=== PATIENT | male | born 1950 | race Caucasian/White ===

== ENCOUNTER → 2017-06-07 | Outpatient (CLI) | payer MEDICARE, OTHER ==
[2016-05-12 15:47] VITALS: BP 179/88
[~2017-06-07] MED LIST: ATOR40TA PO; BLOOD PRESSURE MED; CLOP75TA57 PO; TRAZ50TA15 PO; VALS40TA2 PO; ZOLP5TAB PO
--- NOTE | 2017-06-07 16:23 | RAD ---
Carotid ultrasound, 06/07/2017: History: Atherosclerotic disease, follow-up carotid plaquing Duplex evaluation of the carotid arteries in the neck was performed including grayscale, color-flow and spectral Doppler analysis. There is mild atherosclerotic plaquing at the carotid bifurcations, right greater than left. The peak systolic velocity in the right internal carotid artery is 69 cm/s with an end-diastolic velocity of 26 cm/s. The peak systolic velocity in left internal carotid artery is 77 cm/s with an end-diastolic velocity of 29 cm/s. The Doppler findings suggest luminal narrowing in the 0-50% diameter range. Antegrade flow is present in both vertebral arteries in the neck. IMPRESSION: Mild atherosclerotic plaquing at both carotid bifurcations with underlying luminal narrowing in the 0-50% diameter range bilaterally. Note: Stenosis calculations for CTA, MRA and conventional angiography are based upon determination of the distal ICA diameter in accordance with the NASCET methodology. Stenosis calculations for Doppler studies are derived from validated velocity criteria which are known to correlate with NASCET methodology of determining stenosis.
== END | disposition home or self-care (01) ==
LOC: US 13:44
PROVIDERS: ATTEND Internal Medicine Cardiovascular Disease
DX: I65.23 Occlusion and stenosis of bilateral carotid arteries (principal); F17.200 Nicotine dependence, unspecified, uncomplicated
CPT/HCPCS: 93880

== ENCOUNTER 2018-01-22 16:02 | Inpatient (IN) | payer MEDICARE, OTHER ==
[~2018-01-22] VITALS: Ht 157.5 cm; Wt 71.3 kg
[~2018-01-22 16:02] MED LIST changes: +TRAZ-85 PO; -TRAZ50TA15 PO
[2018-01-22] MEDS ORDERED: ASPIRIN 81 MG TAB.CHEW PO ONE (16:15)
--- NOTE | 2018-01-22 16:38 | PHYS DOC ---
Past History Past Medical History: CAD, High Cholesterol, Heart Disease, Hypertension, TIA Past Surgical History: Coronary Bypass Surgery Smoking: Non-smoker Alcohol Use: Heavy Drug Use: None Adult General Chief Complaint Chief Complaint: CHEST PAIN HPI HPI Patient is a 67 year old male who presents with complaining of intermittent episodes of chest pain. Patient stated he had 1 episodes of bilateral chest and substernal his pain 4 days ago without radiation, shortness of breath, nausea and vomiting, palpitation or dizziness that last about 30 minutes and resolved with taking nitroglycerin 1. Patient states had another episode today while straining at the bathroom and resolved after 2 minutes. Patient states that the same pain previously with his stent placement. Patient denies fever and chills, cough and congestion, vomiting and diarrhea, urinary symptoms. Patient states he drinks 2 shots of liquor daily and didn't have any today. Review of Systems Review of Systems Constitutional: Denies fever or chills [] Eyes: Denies change in visual acuity, redness, or eye pain [] HENT: Denies nasal congestion or sore throat [] Respiratory: Denies cough or shortness of breath [] Cardiovascular: No additional information not addressed in HPI [] GI: Denies abdominal pain, nausea, vomiting, bloody stools or diarrhea [] : Denies dysuria or hematuria [] Musculoskeletal: Denies back pain or joint pain [] Integument: Denies rash or skin lesions [] Neurologic: Denies headache, focal weakness or sensory changes [] Endocrine: Denies polyuria or polydipsia [] All other systems were reviewed and found to be within normal limits, except as documented in this note. Current Medications Current Medications Current Medications Medications (Trade) Dose Ordered Sig/Frances Start Time Stop Time Status Last Admin Dose Admin Aspirin (Children'S Aspirin) 324 mg 1X ONCE 01/22/18 16:15 01/22/18 16:16 DC 01/22/18 16:22 324 MG Allergies Allergies Allergies Coded Allergies Type Severity Reaction Last Updated Verified rosuvastatin Allergy Intermediate 05/12/16 Yes Physical Exam Physical Exam Constitutional: Well developed, well nourished, no acute distress, non-toxic appearance. [] HENT: Normocephalic, atraumatic, oropharynx moist, no oral exudates, nose normal. [] Eyes: PERRLA, EOMI, conjunctiva normal, no discharge. [] Neck: Normal range of motion, no tenderness, supple, no stridor. [] Cardiovascular:Heart rate regular rhythm, no murmur [] Lungs & Thorax: Bilateral breath sounds clear to auscultation [] Abdomen: Bowel sounds normal, soft, no tenderness, no masses, no pulsatile masses. [] Skin: Warm, dry, no erythema, no rash. [] Back: No tenderness, no CVA tenderness. [] Extremities: No tenderness, no cyanosis, no clubbing, ROM intact, no edema. [] Neurologic: Alert and oriented X 3, normal motor function, normal sensory function, no focal deficits noted. [] Psychologic: Affect normal, judgement normal, mood normal. [] Current Patient Data Vital Signs Vital Signs Date Time Temp Pulse Resp B/P (MAP) Pulse Ox O2 Delivery O2 Flow Rate FiO2 01/22/18 16:07 97 Room Air 01/22/18 16:07 91 20 EKG EKG EKG interpreted by me. EKG at 1607 showed sinus bradycardia at rate of 59, no acute distress and T-wave abnormalities Radiology/Procedures Radiology/[place] [address] IMAGING REPORT Signed PATIENT: ASCENCION BELTRAN ACCOUNT: [id number] : 1950 LOCATION: ER AGE: 67 SEX: M EXAM STATUS: REG ER ORD. PHYSICIAN: LAUREL AMOR MD REASON: chest pain PROCEDURE: PORTABLE CHEST 1V AP portable chest 01/22/2018. Reason for exam: Chest pain for one day. Comparison is made with a study of 05/12/2016. Changes of median sternotomy are again shown. No new infiltrate or effusion is seen. Heart size is normal. IMPRESSION: No acute disease. Electronically signed by: Lucia Calrson Jr., MD (01/22/2018 4:34 PM) [facility] DICTATED AND SIGNED BY: LUCIA CARLSON Jr, MD DATE: 01/22/18 [id number] CC: YANA LANDA MD; LAUREL AMOR MD ~ Course & Med Decision Making Course & Med Decision Making Pertinent Labs and Imaging studies reviewed. (See chart for details) Evaluation of patient in ER showed 67-year-old male patient with history of hypertension, dyslipidemia, coronary artery disease, family history of coronary artery disease complaining of intermittent episodes of chest pain for the last 4 days. Patient did not have any chest pain in ER. Physical exam, EKG, chest x- ray and labs was unremarkable. Because of multiple cardiac risk factor plan to admit patient for evaluation. Dr. Koch on-call hospitalist accepted admission at 1644. Dragon Disclaimer Dragon Disclaimer This electronic medical record was generated, in whole or in part, using a voice recognition dictation system. Departure Departure: Impression: Primary Impression: Acute chest pain Disposition: ADMITTED INPATIENT (@1645) Admitting Physician: Eliana Koch (@[id number]) Condition: IMPROVED Referrals: YANA LANDA MD (PCP) LAUREL AMOR MD Jan 22, 2018 16:38
[2018-01-22 17:10] LABS: BASO % 1 % (0-3); EOS # 0.2 x10^3/uL (0.0-0.7); EOS % 2 % (0-3); HEMATOCRIT 47.5 % (39.0-53.0); HEMOGLOBIN 16.3 g/dL (13.0-17.5); LYMPH # 2.9 x10^3/uL (1.0-4.8); LYMPH % 40 % (24-48); MEAN CORPUSCULAR HEMOGLOBIN 33 pg (25-35); MEAN CORPUSCULAR HGB CONC 34 g/dL (31-37); MEAN CORPUSCULAR VOLUME 96 fL (79-100); MONO # 0.8 x10^3/uL (0.0-1.1); MONO % 11 % (0-9); NEUT # 3.4 x10^3uL (1.8-7.7); NEUT % 47 % (31-73); PLATELET COUNT 250 x10^3/uL (140-400); RED BLOOD COUNT 4.97 x10^6/uL (4.30-5.70); RED CELL DISTRIBUTION WIDTH 13.4 % (11.5-14.5); WHITE BLOOD COUNT 7.3 x10^3/uL (4.0-11.0)
[2018-01-22 17:29] LABS: ALBUMIN 3.6 g/dL (3.4-5.0); ALBUMIN/GLOBULIN RATIO 1.2 (1.0-1.7); CALCIUM 8.9 mg/dL (8.5-10.1); CREATININE 1.1 mg/dL (0.7-1.3); GFR 66.6; POTASSIUM 3.6 mmol/L (3.5-5.1); TOTAL BILIRUBIN 0.9 mg/dL (0.2-1.0); TOTAL PROTEIN 6.6 g/dL (6.4-8.2)
[2018-01-22] MEDS ORDERED: ISOS30TA4 PO (18:46)
[2018-01-22] MEDS ORDERED: SILD50TA PO (18:46)
[2018-01-22 19:00] VITALS: BP 169/82
--- NOTE | 2018-01-22 19:18 | EKG ---
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
[2018-01-22] MEDS ORDERED: ZOLPIDEM 5 MG TABLET. PO PRN (20:30)
[2018-01-22] MEDS ORDERED: traZODone 50 MG TABLET. PO SCH (21:00)
[2018-01-22] MEDS ORDERED: Influenza vaccine per PROTOCOL. MC PRN (23:15)
[2018-01-22 23:31] VITALS: BP 103/62
[2018-01-23 05:00] VITALS: BP 143/80
[2018-01-23 08:16] VITALS: BP 143/80
[2018-01-23] MEDS ORDERED: ISOSORBIDE MONONITRATE ER 30 MG TAB.ER.24H PO SCH (09:00)
[2018-01-23] MEDS ORDERED: NON FORMULARY ITEM (Sildenafil Citrate (Viagra) 1 TAB) PO SCH (09:00)
[2018-01-23] MEDS ORDERED: LOSARTAN 50 MG TABLET. PO SCH (09:00)
--- NOTE | 2018-01-23 09:34 | PDOC2 ---
CONSULT Date of Admission DATE: 01/23/18 TIME: 09:33 Reason for Consult: Chest pain Referring Physician: Dr. Salas Chief Complaint Chest pain Source: Chart review, Patient Problem List Problems Medical Problems: (1) Acute chest pain Status: Acute History of Present Illness 67-year-old male with history of coronary artery disease s/p coronary artery bypass surgery 15 years ago with percutaneous intervention thereafter in [address] Burnett from [facility] presented complaining of retrosternal chest pressure 7/10 severity associated with mild diaphoresis without any associated dyspnea, palpitations or syncope. He had a similar episode last Wednesday that was relieved with sublingual nitroglycerin. Patient stated that he had cardiac catheterization end of last year (2016) for similar symptoms and was told he did not need any intervention (records not available at this time). He is presently chest pain-free. He also stated that he exercises and swims on a regular basis and did not notice any chest pain on exertion. Past Medical History Coronary artery disease s/p CABG with PCI thereafter Hypertension Hyperlipidemia TIA Past Surgical History Coronary artery bypass surgery Family History not contributory due to known history of CAD Social History Patient quit smoking cigarettes and marijuana several years ago and admitted to 2-3 alcoholic drinks intake per day. Current Medications Current Medications Aspirin (Children'S Aspirin) 324 mg 1X ONCE PO Last administered on 01/22/18at 16:22; Start 01/22/18 at 16:15; Stop 01/22/18 at 16:16; Status DC Zolpidem Tartrate (Ambien) 5 mg PRN QHS PRN PO INSOMNIA Last administered on at 20:47; Start 01/22/18 at 20:30 Trazodone HCl (Desyrel) 50 mg QHS PO Last administered on 01/22/18at 20:47; Start 01/22/18 at 21:00 Info (FLU VACCINE per PROTOCOL) 1 ea PRN 1X PRN MC PER PROTOCOL; Start at 23:15; Status UNV Influenza Virus Vaccine (Afluria Trivalent [id number] Syringe) 0.5 ml ONCE ONCE VAX IM ; Start 01/23/18 at 09:00; Stop 01/23/18 at 09:01; Status DC Clopidogrel Bisulfate (Plavix) 75 mg QHS PO ; Start 9/23/18 at 21:00 Isosorbide Mononitrate (Imdur) 30 mg DAILY PO Last administered on 01/23/18at 09 :11; Start 01/23/18 at 09:00 Atorvastatin Calcium (Lipitor) 80 mg QHS PO ; Start 01/23/18 at 21:00 Non-Formulary Medication (Sildenafil Citrate (Viagra)) 1 tab PRN PO ; Start at 09:00; Stop 01/23/18 at 09:00; Status DC Losartan Potassium (Cozaar) 50 mg DAILY PO Last administered on 01/23/18at 09:12 ; Start 01/23/18 at 09:00 Active Scripts Active Reported Isosorbide Mononitrate Er (Isosorbide Mononitrate) 30 Mg Tab.er.24h 1 Tab PO DAILY Viagra (Sildenafil Citrate) 50 Mg Tablet 1 Tab PO PRN Lipitor (Atorvastatin Calcium) 40 Mg Tablet 40 Mg PO BID Diovan (Valsartan) 40 Mg Tablet 80 Mg PO DAILY Ambien (Zolpidem Tartrate) 5 Mg Tablet 5 Mg PO PRN QHS PRN Trazodone Hcl 50 Mg Tablet 50 Mg PO QHS Plavix (Clopidogrel Bisulfate) 75 Mg Tablet 1 Tab PO QHS Allergies: Coded Allergies: rosuvastatin (Verified Allergy, Intermediate, 05/12/16) PSYCHOLOGICAL ROS: No: Hallucinations Eyes: No: Loss of vision HEENT: No: Epistaxis Respiratory: No: Hemoptysis, Shortness of breath Cardiovascular: yes: Chest Pain Gastrointestinal: No: Vomiting, Diarrhea Genitourinary: No: [place] Neurological: No: Seizures Skin: No: Rash General: Alert, Oriented X3 HEENT: Atraumatic, PERRLA Lungs: Clear to auscultation Heart: Regular rate Abdomen: Soft Extremities: No edema Psych/Mental Status: Mood NL VITALS Vital Signs Date Time Temp Pulse Resp B/P (MAP) Pulse Ox O2 Delivery O2 Flow Rate FiO2 01/23/18 09:12 62 143/80 01/23/18 08:16 97.9 95 01/23/18 05:00 18 Room Air Labs Laboratory Tests Test 01/22/18 16:16 01/22/18 16:21 01/22/18 19:45 01/22/18 22:30 Troponin I Quantitative < 0.017 ng/mL (0-0.055) < 0.017 ng/mL (0-0.055) < 0.017 ng/mL (0-0.055) White Blood Count 7.3 x10^3/uL (4.0-11.0) Red Blood Count 4.97 x10^6/uL (4.30-5.70) Hemoglobin 16.3 g/dL (13.0-17.5) Hematocrit 47.5 % (39.0-53.0) Mean Corpuscular Volume 96 fL (79-100) Mean Corpuscular Hemoglobin 33 pg (25-35) Mean Corpuscular Hemoglobin Concent 34 g/dL (31-37) Red Cell Distribution Width 13.4 % (11.5-14.5) Platelet Count 250 x10^3/uL (140-400) Neutrophils (%) (Auto) 47 % (31-73) Lymphocytes (%) (Auto) 40 % (24-48) Monocytes (%) (Auto) 11 % (0-9) Eosinophils (%) (Auto) 2 % (0-3) Basophils (%) (Auto) 1 % (0-3) Neutrophils # (Auto) 3.4 x10^3uL (1.8-7.7) Lymphocytes # (Auto) 2.9 x10^3/uL (1.0-4.8) Monocytes # (Auto) 0.8 x10^3/uL (0.0-1.1) Eosinophils # (Auto) 0.2 x10^3/uL (0.0-0.7) Basophils # (Auto) 0.0 x10^3/uL (0.0-0.2) Prothrombin Time 9.8 SEC (9.4-11.4) Prothromb Time International Ratio 1.0 (0.9-1.1) Sodium Level 139 mmol/L (136-145) Potassium Level 3.6 mmol/L (3.5-5.1) Chloride Level 104 mmol/L (98-107) Carbon Dioxide Level 30 mmol/L (21-32) Anion Gap 5 (6-14) Blood Urea Nitrogen 19 mg/dL (8-26) Creatinine 1.1 mg/dL (0.7-1.3) Estimated GFR (Cockcroft-Gault) 66.6 BUN/Creatinine Ratio 17 (6-20) Glucose Level 84 mg/dL (70-99) Calcium Level 8.9 mg/dL (8.5-10.1) Total Bilirubin 0.9 mg/dL (0.2-1.0) Aspartate Amino Transf (AST/SGOT) 23 U/L (15-37) Alanine Aminotransferase (ALT/SGPT) 50 U/L (16-63) Alkaline Phosphatase 72 U/L (46-116) Creatine Kinase 172 U/L (39-308) FA-Lic-Z-Type Natriuretic Peptide 230 pg/mL (0-124) Total Protein 6.6 g/dL (6.4-8.2) Albumin 3.6 g/dL (3.4-5.0) Albumin/Globulin Ratio 1.2 (1.0-1.7) Lipase 290 U/L (73-393) Ethyl Alcohol Level < 10 mg/dL (0-10) Assessment/Plan 1. Coronary artery disease s/p CABG 15 years ago with PCI thereafter in 2006 presenting with chest pain with mixed features. Myocardial infarction has been ruled out. Recent cardiac catheterization apparently did not show any lesions needing intervention. 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 2. Hypertension: Controlled 3. Hyperlipidemia: Continue statin therapy Thank you for your consultation GEORGE LANDEROS MD Jan 23, 2018 09:34
[2018-01-23] MEDS ORDERED: CLOPIDOGREL BISULFATE 75 MG TABLET PO SCH (11:00)
[2018-01-23] MEDS ORDERED: ATORVASTATIN CALCIUM 20 MG TABLET PO SCH (11:00)
[2018-01-23 11:12] VITALS: BP 130/81
--- NOTE | 2018-01-24 01:08 | SSS ---
ADMIT DATE: 01/23/2018 HISTORY OF PRESENT ILLNESS: The patient is a 67-year-old male patient, who came to the Emergency Room, complaining of chest pain. His first episode of chest pain started last Wednesday, the pain lasted about 10-15 minutes. He rated about 8/10 in severity associated with some sweating, but no nausea, no vomiting, no shortness of breath and no radiation and it happened when he was sitting watching TV yesterday and had another episode that lasted about 5 minutes, again pain was retrosternal, is not associated with any nausea or vomiting, occurred when he was at rest and was relieved by sublingual nitroglycerin. He came to the Emergency Room, was evaluated and his first set of cardiac enzyme was normal less than 0.017. He was admitted and has to do 2 more sets of cardiac enzyme and consult the Cardiology team. His EKG showed that he was in sinus bradycardia at the rate of [address] segment elevation or depression. PAST MEDICAL HISTORY: Significant for coronary artery disease, status post CABG 15 years ago. He has also PCI with stent deployment in 2006. His last stress was about 6-7 months ago and was normal. He is known to have hypertension, hyperlipidemia, left carotid artery stenosis and transient ischemic attack. PAST SURGICAL HISTORY: Significant for coronary artery bypass graft surgery, percutaneous coronary intervention with stent deployment x 2, and carotid endarterectomy in 1997. He has rectal prolapse repair 2-[address] Adhikari at [facility]. He has prostate biopsy and followed by his urologist. He underwent esophagogastroduodenoscopy and colonoscopy x 3. ALLERGIES: HE IS ALLERGIC TO CRESTOR. MEDICATIONS: He is currently on following medications: He is on Plavix 75 mg once a day, atorvastatin calcium 40 mg twice a day, isosorbide mononitrate 30 mg once a day, sildenafil citrate 50 mg as needed, valsartan 80 mg daily, trazodone 50 mg at bedtime and Ambien 5 mg at bedtime as needed for insomnia. FAMILY HISTORY: He has one brother, who is older and has a quadruple bypass surgery. One younger brother, who is 61 years old has massive stroke. His father at the age of 88 because of colon cancer and mother in her 70s because of massive myocardial infarction. SOCIAL HISTORY: He is , has son and a daughter. He is an ex-smoker, quit in 1974. He drinks 2-3 drinks a day every night, does not use any drugs. 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 REVIEW OF SYSTEMS: The patient denied any blurring of vision, cataract, glaucoma or macular degeneration. Denied any earache, tinnitus, or sensorineural deafness. Denied any nosebleeds, stuffy nose, or postnasal drip. Denied any sore throat, sore tongue, toothache, hoarseness of voice or difficulty swallowing. Denied any nausea, vomiting, diarrhea or constipation. Denied any hematemesis, melena or hematochezia. Denied any dysuria, frequency or hematuria. He did complain of chest pain, but no shortness of breath. No orthopnea or paroxysmal nocturnal dyspnea. Denied any cough, phlegm or hemoptysis. Denied any chills, rigors, or fever. Denied any dizziness, lightheadedness, or vertigo. PHYSICAL EXAMINATION: GENERAL: When I saw him, he was resting slightly propped up in bed, in no apparent respiratory distress. No pallor, jaundice, cyanosis, or thyromegaly. No jugular venous distension. No lower limb edema. VITAL SIGNS: His heart rate was 68, blood pressure was 130/81, temperature was 98, respiratory rate was 18 and oxygen saturation was 94%. HEAD, EYES, EARS, NOSE AND THROAT: Showed normocephalic, atraumatic. NECK: Supple. HEART: Showed normal first and second heart sounds with no gallop, rub or murmur. CHEST: Clear to auscultation. No crepitation or rhonchi. ABDOMEN: Distended, soft, nontender. No guarding or rigidity. No organomegaly. Hernial orifice intact. Bowel sounds normal. NEUROLOGIC: He was awake, alert, responding appropriately. Cranial nerves intact. EXTREMITIES: He moves extremities without difficulty. LABORATORY DATA: His white cell count was 7300, hemoglobin 16, hematocrit 48, MCV 96, and platelet count of 250,000. His prothrombin time was 9.8, INR of 1. His chemistry showed a serum sodium of 139, potassium 3.6, chloride 104, bicarbonate 30, anion gap of 5, BUN 19, creatinine 1.1, estimated GFR was 66 mL per minute. His glucose was 84, calcium was 8.9. AST, ALT, and alkaline phosphatase were normal. His total protein was 6.6, albumin was 3.6. His lipase was 190. His toxicology screen was negative for alcohol. He has 3 sets of cardiac enzymes, which were negative and showed troponin to be less than 0.017. ASSESSMENT AND PLAN: The patient has had a chest x-ray, which showed that the patient has median sternotomy with no infiltrate or effusion. The heart size is normal. He was seen by the garment steamer and basically the plan was for him to be discharged home as there is no evidence of any myocardial infarction and that he should follow with Dr. Burnett and his group as an outpatient. He was discharged home to continue on following medication, atorvastatin 80 mg at bedtime, Plavix 75 mg once a day, losartan 50 mg once a day, isosorbide mononitrate 30 mg once a day, trazodone 50 mg at bedtime and Ambien 5 mg as needed for insomnia. FINAL DISCHARGE DIAGNOSES: Chest pain, myocardial infarction, ruled out coronary artery disease, status post stent deployment, coronary artery bypass graft surgery, hypertension, hyperlipidemia, transient ischemic attack, left carotid artery stenosis, status post carotid endarterectomy. HALINA RODRIGUEZ MD DR: SIVA/leslie JOB#: [id number] / [id number]
== END 2018-01-23 15:31 | disposition home or self-care (01) | DRG 392 ==
LOC: ER 16:02 → 1 SOUTH 17:10
PROVIDERS: ADMIT Internal Medicine; ATTEND Internal Medicine
DX: K21.9 Gastro-esophageal reflux disease without esophagitis (principal); E78.00 Pure hypercholesterolemia, unspecified; E78.5 Hyperlipidemia, unspecified; I11.9 Hypertensive heart disease without heart failure; R00.1 Bradycardia, unspecified; I25.10 Atherosclerotic heart disease of native coronary artery without angina pectoris; Z80.0 Family history of malignant neoplasm of digestive organs; Z82.3 Family history of stroke; Z82.49 Family history of ischemic heart disease and other diseases of the circulatory system; Z86.73 Personal history of transient ischemic attack (TIA), and cerebral infarction without residual deficits; Z87.891 Personal history of nicotine dependence; Z95.1 Presence of aortocoronary bypass graft; Z79.899 Other long term (current) drug therapy; Z88.8 Allergy status to other drugs, medicaments and biological substances; Z79.02 Long term (current) use of antithrombotics/antiplatelets; Z95.5 Presence of coronary angioplasty implant and graft
CPT/HCPCS: 36415; 71045; 80053; 82550; 83690; 83880; 84484; 85025; 85610; 90471; 90756; 93005; G0480; 99285-25; Q2035

== ENCOUNTER 2018-05-17 07:43 | Emergency (ER) | payer MEDICARE, OTHER ==
[~2018-05-17] VITALS: Ht 157.5 cm; Wt 68.0 kg
[~2018-05-17 07:43] MED LIST changes: +ISOS30TA4 PO; +SILD50TA PO
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
[2018-05-17 08:48] VITALS: BP 139/80
== END 2018-05-17 08:35 | disposition home or self-care (01) ==
LOC: ER 07:43
DX: S01.112A Laceration without foreign body of left eyelid and periocular area, initial encounter (principal); I25.810 Atherosclerosis of coronary artery bypass graft(s) without angina pectoris; I11.9 Hypertensive heart disease without heart failure; E78.00 Pure hypercholesterolemia, unspecified; F10.20 Alcohol dependence, uncomplicated; Z86.73 Personal history of transient ischemic attack (TIA), and cerebral infarction without residual deficits; Z88.8 Allergy status to other drugs, medicaments and biological substances; Y90.9 Presence of alcohol in blood, level not specified; W06.XXXA Fall from bed, initial encounter; Y93.84 Activity, sleeping; Y92.89 Other specified places as the place of occurrence of the external cause; Y99.8 Other external cause status
CPT/HCPCS: 12011; 99283

== ENCOUNTER 2018-12-22 07:55 | Emergency (ER) | payer MEDICARE, OTHER ==
[~2018-12-22] VITALS: Ht 309.9 cm; Wt 70.0 kg
[~2018-12-22 07:55] MED LIST changes: +TRAZ-120 PO; -TRAZ-85 PO
--- NOTE | 2018-12-22 08:13 | PHYS DOC ---
Past History Past Medical History: CAD, High Cholesterol, Heart Disease, Hypertension, TIA Past Surgical History: Coronary Bypass Surgery Smoking: Non-smoker Alcohol Use: Heavy Drug Use: None Adult General HPI HPI Patient is a 68-year-old male presents with difficulty speaking and difficulty getting his watch on this morning. Patient was last seen normal by his as they went to bed at 10:00 last night. noticed symptoms at 7:30 this morning. There has been no nausea or vomiting. No chest pain. No previous history of anything like this.[] Review of Systems Review of Systems Constitutional: Denies fever or chills [] Eyes: Denies change in visual acuity, redness, or eye pain [] HENT: Denies nasal congestion or sore throat [] Respiratory: Denies cough or shortness of breath [] Cardiovascular: No chest pain or palpitations[] GI: Denies abdominal pain, nausea, vomiting, bloody stools or diarrhea [] : Denies dysuria or hematuria [] Musculoskeletal: Denies back pain or joint pain [] Integument: Denies rash or skin lesions [] Neurologic: See history of present illness[] Endocrine: Denies polyuria or polydipsia [] All other systems were reviewed and found to be within normal limits, except as documented in this note. Allergies Allergies Allergies Coded Allergies Type Severity Reaction Last Updated Verified rosuvastatin Allergy Intermediate 05/12/16 Yes Physical Exam Physical Exam Constitutional: Well developed, well nourished, no acute distress, non-toxic appearance. [] HENT: Normocephalic, atraumatic, bilateral external ears normal, oropharynx moist, no oral exudates, nose normal. [] Eyes: PERRLA, EOMI, conjunctiva normal, no discharge. [] Neck: Normal range of motion, no tenderness, supple, no stridor. [] Cardiovascular:Heart rate regular rhythm, no murmur [] Lungs & Thorax: Bilateral breath sounds clear to auscultation [] Abdomen: Bowel sounds normal, soft, no tenderness, no masses, no pulsatile masses. [] Skin: Warm, dry, no erythema, no rash. [] Back: No tenderness, no CVA tenderness. [] Extremities: No tenderness, no cyanosis, no clubbing, ROM intact, no edema. [] Neurologic: Alert and oriented X 3, see NIH stroke scale[] Psychologic: Affect normal, judgement normal, mood normal. [] EKG EKG EKG shows a sinus rhythm at 64 bpm, normal axis, QTC of 423 ms, no ST elevation. Interpreted by me at 0809[] Radiology/Procedures Radiology/Procedures PROCEDURE: CT CODE STROKE HEAD WO CT CODE STROKE HEAD WO History: Difficulty speaking starting at 07:30 today Comparison: None. Technique: Noncontrast CT imaging was performed of the head. Exposure: One or more of the following individualized dose reduction techniques were utilized for this examination: 1. Automated exposure control 2. Adjustment of the mA and/or kV according to patient size 3. Use of iterative reconstruction technique. Findings: No acute extra-axial or parenchymal hemorrhage is identified. There is no significant intra-axial mass effect, midline shift, or extra-axial fluid collection. The woodward-white differentiation of the major vascular territories is preserved. There is a small old lacunar infarct right caudate head. There are some small foci of likely old lacunar infarcts of the left cerebellum, also probable small focus left temporal parietal lobe. The ventricles, sulci, and cisterns are within normal limits in size and configuration. The mastoid air cells and the visualized paranasal sinuses are aerated. No acute calvarial abnormality is identified. There is atherosclerotic calcification of the bilateral carotid siphons, also right intradural vertebral artery. Impression: 1. There is no evidence of acute intracranial hemorrhage. There are old lacunar infarcts of the right caudate head and left cerebellum, also probable small focus of the left temporal parietal lobe. CT ANGIOGRAPHY HEAD AND NECK History: Code stroke. Difficulty speaking. Technique: After bolus of intravenous contrast, volumetric CT data acquisition was acquired of the head and neck. Multiplanar reconstruction images to include MIP and 3-D reconstruction images are submitted. Exposure: One or more of the following individualized dose reduction techniques were utilized for this examination: 1. Automated exposure control 2. Adjustment of the mA and/or kV according to patient size 3. Use of iterative reconstruction technique. Contrast: 90 mL Omnipaque 350 IV contrast. Comparison: None Any determination of stenosis is based on NASCET criteria. Head CTA: ICA: Bilateral carotid siphon atheromatous calcifications with mild multifocal narrowing. No high-grade stenosis or occlusion. MCA: Occlusion of left distal M2 branch (series 7 image #248 was present. Irregularity of right superior MCA branches likely due to atheromatous disease. Patent right MCA branches. OTIS: No stenosis, occlusion or aneurysm. Patent anterior communicating artery. GRAIN INSPECTOR: No stenosis, occlusion or aneurysm. Patent bilateral posterior communicating arteries. Basilar artery: No stenosis, occlusion or aneurysm. Distal vertebral arteries: Distal left vertebral artery functionally ends in PICA. Right distal vertebral artery atheromatous calcination with mild to moderate narrowing. CT angiogram neck: Aortic arch: Mild atheromatous consolidations within the aortic arch and branch vessels. Common carotid arteries: No stenosis, occlusion or dissection. Bilateral distal common carotid artery and right carotid bulb atheromatous calcifications. Internal carotid arteries: Right proximal internal carotid artery atheromatous calcified plaque. No significant stenosis. No occlusion. Postoperative changes within the left carotid bulb region. External carotid arteries: Patent Vertebral arteries: Abdominal right vertebral artery within the neck. Imaged lung apices are unremarkable. Soft tissues appear normal. Bones: No pathologic osseous lesions. Multilevel cervical spondylosis most prominent C5-C6 and C6-C7. See prior noncontrast head CT report for evaluation of brain parenchyma. Impression: 1. Acute left M2 mid to distal branch occlusion. Additional intracranial atheromatous disease with mild narrowings, as described. 2. Atheromatous disease within the neck without significant stenosis or occlusion. PROCEDURE: PORTABLE CHEST 1V EXAM: Chest, single view. HISTORY: Altered mental status COMPARISON: None. FINDINGS: A frontal view of the chest obtained. There is no infiltrate, pleural effusion or pneumothorax. The heart is normal in size. There is evidence of median sternotomy. There are surgical clips within the left neck. IMPRESSION: No acute pulmonary finding.[] Course & Med Decision Making Course & Med Decision Making Pertinent Labs and Imaging studies reviewed. (See chart for details) ED course and medical decision making: Patient arrived, was kept in the wheelchair for the quick evaluation and sent to CT due to concern for stroke. Patient returned and was placed in bed and tolerated rest of exam well. After the return of the CT head findings, consultation was made with neurology, Dr. Canas, who agrees that while it seems the patient is having a stroke, trauma lytics are contraindicated because we do not have a firm time of onset within the past 4.5 hours. She agrees with obtaining a CT angiogram of the head to see if there is large vessel occlusion but does not believe that this will be present. 0 920, patient doing better, he is able to follow commands as far as finger to nose and crosses midline with this. He is speaking much clearer. He reports he was up shaving between 7 and 7:30 this morning and then he noticed that patches of the shaving cream or missing. At approximately the same time called by radiology notes a clot in the left M2 branch distally. Dr. Canas was contacted who recommended giving TPA. Discussed risks and benefits of administering TPA and had informed consent signed by patient. Both patient and had no questions. Critical care time of 63 minutes for direct patient care, consultation with specialists, interpretation of lab and imaging studies, and administration of TPA. [] Dragon Disclaimer Dragon Disclaimer This electronic medical record was generated, in whole or in part, using a voice recognition dictation system. Departure Departure: Impression: Primary Impression: Stroke Disposition: 05 TRANSFER OTHER Condition: IMPROVED Referrals: YANA LANDA MD (PCP) NIHSS - ED NIH Stroke Scale: NIH Stroke Scale Response (Comments) Value Level of Consciousness: 0 Alert/Responsive 0 LOC Questions: 1 Answers one correctly 1 LOC Commands: 0 Performs both tasks 0 Best Gaze: 0 Normal 0 Visual: 0 No visual loss 0 Facial Palsy: 1 Minor paralysis 1 Motor - Left Arm 0 No drift 0 Motor - Right Arm 0 No drift 0 Motor - Left Leg 0 No drift 0 Motor: Right Leg 0 No drift 0 Limb Ataxia: 0 Absent (does not follow commands to be able to perform) 0 Sensory: 1 Mid to moderate loss (bilateral upper extremities) 1 Best Language: 1 Mild to mod aphasia 1 Dysathria: 1 Mild to moderate 1 Extinction and Inattention: 0 Normal 0 Total 5 Problem Qualifiers Primary Impression: Stroke CVA mechanism: embolism Precerebral and cerebral artery: other cerebral artery Qualified Codes: I63.49 - Cerebral infarction due to embolism of other cerebral artery ALEX KNIGHT DO Dec 22, 2018 08:13
--- NOTE | 2018-12-22 08:22 | EKG ---
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
[2018-12-22 08:23] LABS: BASO # 0.1 x10^3/uL (0.0-0.2); BASO % 1 % (0-3); EOS # 0.2 x10^3/uL (0.0-0.7); EOS % 2 % (0-3); HEMATOCRIT 49.8 % (39.0-53.0); HEMOGLOBIN 16.9 g/dL (13.0-17.5); LYMPH # 3.7 x10^3/uL (1.0-4.8); LYMPH % 52 % (24-48); MEAN CORPUSCULAR HEMOGLOBIN 33 pg (25-35); MEAN CORPUSCULAR HGB CONC 34 g/dL (31-37); MEAN CORPUSCULAR VOLUME 97 fL (79-100); MONO # 0.5 x10^3/uL (0.0-1.1); MONO % 7 % (0-9); NEUT # 2.7 x10^3uL (1.8-7.7); NEUT % 38 % (31-73); PLATELET COUNT 278 x10^3/uL (140-400); RED BLOOD COUNT 5.14 x10^6/uL (4.30-5.70); RED CELL DISTRIBUTION WIDTH 13.5 % (11.5-14.5); WHITE BLOOD COUNT 7.1 x10^3/uL (4.0-11.0)
[2018-12-22] MEDS ORDERED: IOHEXOL 350 MG/ML 100 ML VIAL. IV ONE (08:30)
[2018-12-22 08:46] LABS: ALBUMIN 3.7 g/dL (3.4-5.0); ALBUMIN/GLOBULIN RATIO 1.1 (1.0-1.7); CALCIUM 8.9 mg/dL (8.5-10.1); CREATININE 1.1 mg/dL (0.7-1.3); GFR 66.4; MAGNESIUM 2.1 mg/dL (1.8-2.4); POTASSIUM 3.7 mmol/L (3.5-5.1); TOTAL BILIRUBIN 0.8 mg/dL (0.2-1.0); TOTAL PROTEIN 7.2 g/dL (6.4-8.2)
--- NOTE | 2018-12-22 08:48 | RAD ---
EXAM: Chest, single view. HISTORY: Altered mental status COMPARISON: None. FINDINGS: A frontal view of the chest obtained. There is no infiltrate, pleural effusion or pneumothorax. The heart is normal in size. There is evidence of median sternotomy. There are surgical clips within the left neck. IMPRESSION: No acute pulmonary finding. Electronically signed by: Paula Hernandez MD (12/22/2018 8:45 AM) [facility]
[2018-12-22] MEDS ORDERED: ASPIRIN RECTAL 300 MG SUPP. PR ONE (09:00)
[2018-12-22] MEDS ORDERED: ALTEPLASE 100 MG IV ONE (09:41)
[2018-12-22] MEDS ORDERED: ALTEPLASE IV SCH (09:45)
[2018-12-22] MEDS ORDERED: ALTEPLASE IV ONE (09:45)
--- NOTE | 2018-12-22 09:53 | RAD ---
CT ANGIOGRAPHY HEAD AND NECK History: Code stroke. Difficulty speaking. Technique: After bolus of intravenous contrast, volumetric CT data acquisition was acquired of the head and neck. Multiplanar reconstruction images to include MIP and 3-D reconstruction images are submitted. Exposure: One or more of the following individualized dose reduction techniques were utilized for this examination: 1. Automated exposure control 2. Adjustment of the mA and/or kV according to patient size 3. Use of iterative reconstruction technique. Contrast: 90 mL Omnipaque 350 IV contrast. Comparison: None Any determination of stenosis is based on NASCET criteria. Head CTA: ICA: Bilateral carotid siphon atheromatous calcifications with mild multifocal narrowing. No high-grade stenosis or occlusion. MCA: Occlusion of left distal M2 branch (series 7 image #248 was present. Irregularity of right superior MCA branches likely due to atheromatous disease. Patent right MCA branches. OTIS: No stenosis, occlusion or aneurysm. Patent anterior communicating artery. CALL CENTER RECEPTIONIST: No stenosis, occlusion or aneurysm. Patent bilateral posterior communicating arteries. Basilar artery: No stenosis, occlusion or aneurysm. Distal vertebral arteries: Distal left vertebral artery functionally ends in PICA. Right distal vertebral artery atheromatous calcination with mild to moderate narrowing. CT angiogram neck: Aortic arch: Mild atheromatous consolidations within the aortic arch and branch vessels. Common carotid arteries: No stenosis, occlusion or dissection. Bilateral distal common carotid artery and right carotid bulb atheromatous calcifications. Internal carotid arteries: Right proximal internal carotid artery atheromatous calcified plaque. No significant stenosis. No occlusion. Postoperative changes within the left carotid bulb region. External carotid arteries: Patent Vertebral arteries: Abdominal right vertebral artery within the neck. Imaged lung apices are unremarkable. Soft tissues appear normal. Bones: No pathologic osseous lesions. Multilevel cervical spondylosis most prominent C5-C6 and C6-C7. See prior noncontrast head CT report for evaluation of brain parenchyma. Impression: 1. Acute left M2 mid to distal branch occlusion. Additional intracranial atheromatous disease with mild narrowings, as described. 2. Atheromatous disease within the neck without significant stenosis or occlusion. FOR INTERNAL CODING PURPOSES Critical result: Findings discussed with ALEX KNIGHT at 12/22/2018 9:33 AM. RESULT CODE: (C) Electronically signed by: Abdifatah Tomlinson DO (12/22/2018 9:50 AM) [facility]
[2018-12-22 10:00] LABS: BACTERIA,URINE 0 /HPF (0-FEW); BILIRUBIN,URINE NEG (NEG); CLARITY,URINE HAZY; COLOR,URINE YELLOW; GLUCOSE,URINE NEG (NEG); NITRITE,URINE NEG (NEG); RBC,URINE 0 /HPF (0-2); SQUAMOUS EPITHELIAL CELL,UR OCC /LPF; UROBILINOGEN,URINE 0.2 mg/dL (0.2 mg/dL); WBC,URINE RARE /HPF (0-4)
[2018-12-22] MEDS ORDERED: LABETALOL 20 MG/4 ML DISP.SYRIN. IV PRN (10:00)
[2018-12-22] MEDS ORDERED: ALTEPLASE 0 MG IV SCH (10:00)
[2018-12-22] MEDS ORDERED: ALTEPLASE 0 MG IV ONE (10:00)
[2018-12-22] MEDS ORDERED: IV NORMAL SALINE 50ML 50 ML IV ONE (10:00)
[2018-12-22 10:26] VITALS: BP 147/67
== END 2018-12-22 10:42 | disposition short-term general hospital (02) ==
LOC: ER 07:55
DX: I63.49 Cerebral infarction due to embolism of other cerebral artery (principal); R47.89 Other speech disturbances; I25.810 Atherosclerosis of coronary artery bypass graft(s) without angina pectoris; E78.00 Pure hypercholesterolemia, unspecified; I11.9 Hypertensive heart disease without heart failure; Z86.73 Personal history of transient ischemic attack (TIA), and cerebral infarction without residual deficits; Z88.8 Allergy status to other drugs, medicaments and biological substances
CPT/HCPCS: 36415; 37195; 70450; 70496; 70498; 71045; 80053; 81001; 82947; 83735; 83880; 84484; 85025; 85610; 85730; 87040; 93005; 99291; J2997

== ENCOUNTER 2021-05-08 17:43 | Emergency (ER) | payer MEDICARE, OTHER ==
[~2021-05-08] VITALS: Ht 309.9 cm; Wt 70.0 kg
[~2021-05-08 17:43] MED LIST changes: -ISOS30TA4 PO; +ISOS30TA68 PO
--- NOTE | 2021-05-08 20:48 | PHYS DOC ---
Past History Past Medical History: CAD, High Cholesterol, Heart Disease, Hypertension, TIA Additional Past Medical Histor: prolapsed rectum Past Medical History H.x hemorrhoid prior Prolapsed surgery Past Surgical History: Coronary Bypass Surgery, Other Additional Past Surgical Histo: hemorrhoids Smoking: Non-smoker Alcohol Use: Heavy Drug Use: None General Adult EDM: Chief Complaint: RECTAL BLEED HPI: HPI: :".. When I have a stool .. I noticed I am having spots of bright red blood... " Patient is a 70 year old male who presents with above hx and complaints of rectal bleeding. Patient has previous history of rectal bleeding and hemorrhoids and rectal prolapse. Rectal prolapse repair occurred in [address] Stevenson. At [facility] . Patient last colonoscopy approximately 5 years ago. Patient has had 3 upper GIs scopes and 3 colon scopes. Has not had an EGD. Patient has noted the spots bright red of blood in his stool takes after a hard stool. Patient is on Plavix and aspirin for his coronary artery disease. He has a significant past medical history of coronary disease status post coronary artery bypass grafting 15 years ago is also had PCI's with stent deployment in 2006 patient last heart stress testing was in 2018. He has known history of hypertension, hyperlipidemia, left carotid stenosis-endarterectomy in 1997. Patient has known history of large prostate and is followed by urologist. Patient has gone and TIAs. Patient pt. follows with Dr. Landa. Review of Systems: Review of Systems: Constitutional: Denies fever or chills Eyes: Denies change in visual acuity HENT: Denies nasal congestion or sore throat Respiratory: Denies cough or shortness of breath Cardiovascular: Denies chest pain or edema GI: Denies abdominal pain, nausea, vomiting, bloody stools or diarrhea. Complains of rectal bleeding : Denies dysuria Musculoskeletal: Denies back pain or joint pain Integument: Denies rash Neurologic: Denies headache, focal weakness or sensory changes Endocrine: Denies polyuria or polydipsia Lymphatic: Denies swollen glands Psychiatric: Denies depression or anxiety Family History: Family History: Noncontributory to presentation. Patient has 1 brother who is older quadruple bypass he has a younger brother has had a stroke. at 88 due to colon cancer mother in her 70s due to [place]. Current Medications: Current Meds: See nursing for home meds Allergies: Allergies: Allergies Coded Allergies Type Severity Reaction Last Updated Verified rosuvastatin Allergy Intermediate 05/12/16 Yes Physical Exam: PE: Constitutional: no acute distress, non-toxic appearance. [] HENT: Normocephalic, atraumatic, bilateral external ears normal, oropharynx moist, no oral exudates, nose normal. [] Eyes: PERRLA, EOMI, conjunctiva normal, no discharge. Glasses Neck: Normal range of motion, no tenderness, supple, no stridor. [] Scar Cardiovascular:Heart rate regular rhythm, no murmur [] Lungs & Thorax: Bilateral breath sounds clear to auscultation []Mid line scar. Abdomen: Bowel sounds normal, soft, no tenderness, no masses, no pulsatile masses. [] Distended., Rectal some bright red blood. Skin: Warm, dry, no erythema, no rash. [] Back: No tenderness, no CVA tenderness. [] Extremities: No tenderness, no cyanosis, no clubbing, ROM intact, no edema. [] Neurologic: Alert and oriented X 3, normal motor function, normal sensory function, no focal deficits noted. [] Psychologic: Affect anxious, judgement normal, mood normal. [] Current Patient Data: Vital Signs: Vital Signs Date Time Temp Pulse Resp B/P (MAP) Pulse Ox O2 Delivery O2 Flow Rate FiO2 05/08/21 19:08 98.0 67 16 181/111 (134) 97 Room Air EKG: EKG: [] Radiology/Procedures: Radiology/Procedures: [] Heart Score: C/O Chest Pain: N/A Risk Factors: Risk Factors: DM, Current or recent (<one month) smoker, HTN, HLP, family history of CAD, obesity. Risk Scores: Score 0 - 3: 2.5% MACE over next 6 weeks - Discharge Home Score 4 - 6: 20.3% MACE over next 6 weeks - Admit for Clinical Observation Score 7 - 10: 72.7% MACE over next 6 weeks - Early Invasive Strategies Course & Med Decision Making: Course & Med Decision Making Pertinent Labs and Imaging studies reviewed. (See chart for details) Discussed options of evaluation with patient. Patient currently declines labs. Will monitor stools for bleeding. Will hold aspirin and Plavix for 2 days. Patient to follow-up with Dr. Landa for his elevated blood pressure. Patient take off and with him when he follows up with Dr. Landa. Patient to schedule outpatient colonoscopy and EGD. Patient return if any concerns. Impression: 1. Outlet or rectal bleeding 2. History of hemorrhoids and rectal prolapse-status post repair 3. History of hypertension-(elevated blood pressure tonight 160s over 100) 6. History of coronary artery disease status post bypass surgery and stents. 7. HTN- ( plan follow up with Dr. Mccann for medication modification-) [] Andrewon Disclaimer: Mike Disclaimer: This electronic medical record was generated, in whole or in part, using a voice recognition dictation system. Departure Departure: Referrals: YANA LANDA MD (PCP) Mike Disclaimer This chart was dictated in whole or in part using Voice Recognition software in a busy, high-work load, and often noisy Emergency Department environment. It may contain unintended and wholly unrecognized errors or omissions. RAF DAWN MD May 08, 2021 20:48
[2021-05-08 21:24] VITALS: BP 169/100
== END 2021-05-08 21:33 | disposition home or self-care (01) ==
LOC: ER 17:43
DX: K62.5 Hemorrhage of anus and rectum (principal); I25.810 Atherosclerosis of coronary artery bypass graft(s) without angina pectoris; E78.00 Pure hypercholesterolemia, unspecified; I11.9 Hypertensive heart disease without heart failure; Z86.73 Personal history of transient ischemic attack (TIA), and cerebral infarction without residual deficits; Z88.8 Allergy status to other drugs, medicaments and biological substances
CPT/HCPCS: 99282

== ENCOUNTER 2021-05-11 08:59 | Emergency (ER) | payer MEDICARE, OTHER ==
[~2021-05-11] VITALS: Ht 309.9 cm; Wt 75.0 kg
--- NOTE | 2021-05-11 11:38 | PHYS DOC ---
Past History Past Medical History: CAD, High Cholesterol, Heart Disease, Hypertension, TIA Additional Past Medical Histor: prolapsed rectum Past Surgical History: Coronary Bypass Surgery, Other Additional Past Surgical Histo: hemorrhoids Smoking: Non-smoker Alcohol Use: Heavy Drug Use: None Adult General Chief Complaint Chief Complaint: HYPERTENSION HPI HPI Patient is a 70-year-old male patient with history of CAD, hypertension, high cholesterol, presenting today complaining of high blood pressure. Patient states he is on Diovan 40 mg twice a day. He states his blood pressure has been running high for days. He states he was seen in the ED a couple days ago for rectal bleed and his blood pressure was high. He states this morning his blood pressure was still high in the 170s over low 100s. He states his PCP is aware and has an appointment for him on May 22, 2021. He states he would like to be checked out to make sure he is not having a stroke. Patient denies any chest pain, headache, shortness of breath. Review of Systems Review of Systems Constitutional: Denies fever or chills [] Eyes: Denies change in visual acuity, redness, or eye pain [] HENT: Denies nasal congestion or sore throat [] Respiratory: Denies cough or shortness of breath [] Cardiovascular: Reports high blood pressure. No additional information not addressed in HPI [] GI: Denies abdominal pain, nausea, vomiting, bloody stools or diarrhea [] : Denies dysuria or hematuria [] Musculoskeletal: Denies back pain or joint pain [] Integument: Denies rash or skin lesions [] Neurologic: Denies headache, focal weakness or sensory changes [] All other systems were reviewed and found to be within normal limits, except as documented in this note. Allergies Allergies Allergies Coded Allergies Type Severity Reaction Last Updated Verified rosuvastatin Allergy Intermediate 05/12/16 Yes Physical Exam Physical Exam Constitutional: Well developed, well nourished, no acute distress, non-toxic appearance. [] HENT: Normocephalic, atraumatic, bilateral external ears normal, oropharynx moist, no oral exudates, nose normal. [] Eyes: PERRLA, EOMI, conjunctiva normal, no discharge. [] Neck: Normal range of motion, no tenderness, supple, no stridor. [] Cardiovascular:Heart rate regular rhythm, no murmur [] Lungs & Thorax: Bilateral breath sounds clear to auscultation [] Abdomen: Bowel sounds normal, soft, no tenderness, no masses, no pulsatile masses. [] Skin: Warm, dry, no erythema, no rash. [] Back: No tenderness, no CVA tenderness. [] Extremities: No tenderness, no cyanosis, no clubbing, ROM intact, no edema. [] Neurologic: Alert and oriented X 3, normal motor function, normal sensory function, no focal deficits noted. [] Psychologic: Affect normal, judgement normal, mood normal. [] Current Patient Data Vital Signs Vital Signs Date Time Temp Pulse Resp B/P (MAP) Pulse Ox O2 Delivery O2 Flow Rate FiO2 05/11/21 10:50 97.9 60 20 150/79 (102) 96 Room Air EKG EKG [address] Pham sinus rhythm hypertension 53 minutes no STEMI Radiology/Procedures Radiology/Procedures []PROCEDURE: CT HEAD WO CONTRAST CT scan of the head without contrast 05/11/2021 Clinical History: Hypertension. Technique: Unenhanced, contiguous, 5 mm axial sections were obtained through the head. One or more of the following individualized dose reduction techniques were utilized for this study: 1. Automated exposure control. 2. Adjustment of the mA and/or kV according to patient size. 3. Use of iterative reconstruction technique. Findings: Comparison study is dated 12/22/2018 There is generalized parenchymal atrophy. Areas of decreased attenuation are seen within the periventricular and subcortical white matter of both cerebral hemispheres consistent with areas of small vessel ischemic disease. An old area of lacunar infarction is seen in the region of the head of the right caudate nucleus, unchanged. No acute parenchymal abnormality is seen. No extra-axial fluid collection is noted. No skull fracture is seen. Impression: No acute intracranial abnormality is seen. Electronically signed by: Gagan Floyd MD (05/11/2021 11:42 AM) [id number] DICTATED AND SIGNED BY: GAGAN FLOYD MD DATE: 05/11/21 1131 CC: YANA LANDA MD; NOA HUNTER MANPOWER DEVELOPMENT ADVISOR ~MTH0 0 PROCEDURE: PORTABLE CHEST 1V AP portable chest radiograph 05/11/2021 Clinical History: Hypertension. An AP erect portable digital radiograph of the chest was obtained. Comparison study is dated 12/22/2018. The patient is post CABG procedure. The cardiac silhouette is normal in size. The thoracic aorta is tortuous. Atherosclerotic calcification of the thoracic aorta is seen. No acute pulmonary infiltrate is noted. No pneumothorax or pleural effusion is seen. There is diffuse osteopenia the visualized bony structures. Degenerative changes are seen involving the thoracic spine. Impression: No acute abnormality is seen. Electronically signed by: Gagan Floyd MD (05/11/2021 12:36 PM) [id number] DICTATED AND SIGNED BY: GAGAN FLOYD MD DATE: 05/11/21 1230 CC: YANA LANDA MD; NOA HUNTER MANPOWER DEVELOPMENT ADVISOR ~MTH0 0 Heart Score C/O Chest Pain: N/A Risk Factors: Risk Factors: DM, Current or recent (<one month) smoker, HTN, HLP, family history of CAD, obesity. Risk Scores: Risk Factors: DM, Current or recent (<one month) smoker, HTN, HLP, family history of CAD, obesity. Course & Med Decision Making Course & Med Decision Making pertinent Labs and Imaging studies reviewed. (See chart for details) This is a 70-year-old male patient presented to the ED today complaining of high blood pressure for days. Patient has no other symptoms. BP on arrival to the ED is 150/79 with a heart rate of 60. Patient has no symptoms but would like to be worked up to make sure he is not having a stroke. CT of the head is negative, chest x-ray is negative. CBC, CMP, troponin-negative for any acute findings UA is negative UDS positive for marijuana use Patient was discharged home. Follow-up with PCP as scheduled on May 22, 2021. Provided return precautions. Dragon Disclaimer Dragon Disclaimer This electronic medical record was generated, in whole or in part, using a voice recognition dictation system. 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 Please continue taking your blood pressure medicine as prescribed by your doctor. Your work-up in the emergency room is negative for any acute findings including a negative CT of the head. We encourage you to follow-up with your optical goods drill operator and primary care doctor in the next 1 to 2 weeks. Problem Qualifiers Primary Impression: High blood pressure Hypertension type: unspecified Qualified Codes: I10 - Essential (primary) hypertension NOA HUNTER MANPOWER DEVELOPMENT ADVISOR May 11, 2021 11:38
--- NOTE | 2021-05-11 11:44 | RAD ---
CT scan of the head without contrast 05/11/2021 Clinical History: Hypertension. Technique: Unenhanced, contiguous, 5 mm axial sections were obtained through the head. One or more of the following individualized dose reduction techniques were utilized for this study: 1. Automated exposure control. 2. Adjustment of the mA and/or kV according to patient size. 3. Use of iterative reconstruction technique. Findings: Comparison study is dated 12/22/2018 There is generalized parenchymal atrophy. Areas of decreased attenuation are seen within the perivent ricular and subcortical white matter of both cerebral hemispheres consistent with areas of small vess el ischemic disease. An old area of lacunar infarction is seen in the region of the head of the right caudate nucleus, unchanged. No acute parenchymal abnormality is seen. No extra-axial fluid collectio n is noted. No skull fracture is seen. Impression: No acute intracranial abnormality is seen. Electronically signed by: Gagan Floyd MD (05/11/2021 11:42 AM) [id number]
[2021-05-11 11:59] VITALS: BP 142/77
[2021-05-11 12:07] LABS: BASO % 0 % (0-3); EOS # 0.1 x10^3/uL (0.0-0.7); EOS % 2 % (0-3); HEMATOCRIT 45.6 % (39.0-53.0); HEMOGLOBIN 15.4 g/dL (13.0-17.5); LYMPH # 1.6 x10^3/uL (1.0-4.8); LYMPH % 33 % (24-48); MEAN CORPUSCULAR HEMOGLOBIN 33 pg (25-35); MEAN CORPUSCULAR HGB CONC 34 g/dL (31-37); MEAN CORPUSCULAR VOLUME 97 fL (79-100); MONO # 0.5 x10^3/uL (0.0-1.1); MONO % 9 % (0-9); NEUT # 2.7 x10^3uL (1.8-7.7); NEUT % 56 % (31-73); PLATELET COUNT 269 x10^3/uL (140-400); RED BLOOD COUNT 4.71 x10^6/uL (4.30-5.70); RED CELL DISTRIBUTION WIDTH 13.3 % (11.5-14.5); WHITE BLOOD COUNT 4.9 x10^3/uL (4.0-11.0)
[2021-05-11 12:17] LABS: CALCIUM 8.6 mg/dL (8.5-10.1); CREATININE 0.8 mg/dL (0.7-1.3); GFR 95.3; POTASSIUM 4.5 mmol/L (3.5-5.1)
[2021-05-11 12:18] LABS: BARBITURATES NEG (NEG); BENZODIAZEPINES NEG (NEG); CANNABINOIDS POS (NEG); COCAINE NEG (NEG); METHADONE NEG (NEG); OPIATES NEG (NEG); PHENCYCLIDINE NEG (NEG)
[2021-05-11 12:19] LABS: AMPHETAMINE/METHAMPHETAMINE NEG (NEG)
[2021-05-11 12:33] LABS: ALBUMIN 3.4 g/dL (3.4-5.0); ALBUMIN/GLOBULIN RATIO 1.3 (1.0-1.7); MAGNESIUM 2.4 mg/dL (1.8-2.4); TOTAL BILIRUBIN 1.1 mg/dL (0.2-1.0); TOTAL PROTEIN 6.1 g/dL (6.4-8.2)
[2021-05-11 12:38] LABS: BILIRUBIN,URINE NEG (NEG); CLARITY,URINE CLOUDY; COLOR,URINE YELLOW; GLUCOSE,URINE NEG (NEG)
--- NOTE | 2021-05-11 12:38 | RAD ---
AP portable chest radiograph 05/11/2021 Clinical History: Hypertension. An AP erect portable digital radiograph of the chest was obtained. Comparison study is dated 12/22/2018. The patient is post CABG procedure. The cardiac silhouette is normal in size. The thoracic aorta is t ortuous. Atherosclerotic calcification of the thoracic aorta is seen. No acute pulmonary infiltrate i s noted. No pneumothorax or pleural effusion is seen. There is diffuse osteopenia the visualized bony structures. Degenerative changes are seen involving the thoracic spine. Impression: No acute abnormality is seen. Electronically signed by: Gagan Floyd MD (05/11/2021 12:36 PM) [id number]
[2021-05-11 12:39] LABS: AMORPHOUS SEDIMENT,UR PRESENT /HPF; BACTERIA,URINE 0 /HPF (0-FEW); NITRITE,URINE NEG (NEG); RBC,URINE OCC /HPF (0-2); SQUAMOUS EPITHELIAL CELL,UR FEW /LPF; UROBILINOGEN,URINE 0.2 mg/dL (0.2 mg/dL); WBC,URINE OCC /HPF (0-4)
--- NOTE | 2021-05-11 13:07 | EKG ---
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
== END 2021-05-11 13:43 | disposition home or self-care (01) ==
LOC: ER 08:59
DX: I11.9 Hypertensive heart disease without heart failure (principal); I25.810 Atherosclerosis of coronary artery bypass graft(s) without angina pectoris; E78.00 Pure hypercholesterolemia, unspecified; F10.20 Alcohol dependence, uncomplicated; Z86.73 Personal history of transient ischemic attack (TIA), and cerebral infarction without residual deficits; Z88.8 Allergy status to other drugs, medicaments and biological substances; Y90.0 Blood alcohol level of less than 20 mg/100 ml
CPT/HCPCS: 36415; 70450; 71045; 80053; 80307; 81001; 82553; 83735; 83880; 84484; 85025; 85610; 85730; 93005; 99285